=== PATIENT | male | born 1995 | race Caucasian/White ===

== ENCOUNTER 2019-05-15 14:08 | Emergency (ER) | payer OTHER ==
[2019-05-15 14:12] VITALS: BP 138/69
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
== END 2019-05-15 15:29 | disposition home or self-care (01) ==
LOC: ER 14:08
DX: S62.304A Unspecified fracture of fourth metacarpal bone, right hand, initial encounter for closed fracture (principal); S62.306A Unspecified fracture of fifth metacarpal bone, right hand, initial encounter for closed fracture; M79.641 Pain in right hand; M25.572 Pain in left ankle and joints of left foot; W22.8XXA Striking against or struck by other objects, initial encounter; Z87.891 Personal history of nicotine dependence
CPT/HCPCS: 99283

== ENCOUNTER 2019-05-29 13:08 | Emergency (ER) | payer SELFPAY ==
[2019-05-29 13:25] VITALS: BP 144/85
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
== END 2019-05-29 13:40 | disposition home or self-care (01) ==
LOC: ER 13:08
DX: S86.00 Unspecified injury of Achilles tendon (principal); X58.XXXS Exposure to other specified factors, sequela
CPT/HCPCS: 99283

== ENCOUNTER 2019-05-29 20:32 | Emergency (ER) | payer OTHER ==
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
[2019-05-29] MEDS ORDERED: ZIPRASIDONE MESYLATE INJ/PF 20 MG SDV IM ONE (21:33)
[2019-05-29] MEDS ORDERED: KETOROLAC TROMETHAMINE 60 MG/2 ML SDV IM ONE (22:20)
[2019-05-29] MEDS ORDERED: HALOPERIDOL LACTATE INJ 5 MG/1 ML VIAL IM ONE (22:28)
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
[2019-05-30 00:11] LABS: APPEARANCE,URINE CLEAR; BILIRUBIN,URINE NEGATIVE (NEGATIVE); COLOR,URINE YELLOW; GLUCOSE, URINE NEGATIVE (NEGATIVE); KETONES,URINE NEGATIVE (NEGATIVE); LEUKOCYTE ESTERASE,URINE NEGATIVE (NEGATIVE); NITRITE,URINE NEGATIVE (NEGATIVE); PROTEIN,URINE 100 mg/dL (NEGATIVE); URINE SPECIFIC GRAVITY 1.017; UROBILINOGEN,URINE NEGATIVE mg/dL (<2.0)
[2019-05-30 00:13] LABS: ABSOLUTE LYMPHOCYTES (AUTO) 1.3 10^3/uL (0.5-4.7); ABSOLUTE MONOCYTES (AUTO) 0.8 10^3/uL (0.1-1.4); BASOPHILS % (AUTO) 0.2 % (0-2); HEMATOCRIT 40.4 % (37.9-51.0); HEMOGLOBIN 14.1 g/dL (13.5-17.0); LYMPHOCYTES % (AUTO) 14.1 % (13-45); MEAN CORPUSCULAR HEMOGLOBIN 29.9 pg (27.0-33.4); MEAN CORPUSCULAR HGB CONC 34.9 g/dL (32.0-36.0); MEAN CORPUSCULAR VOLUME 86 fl (80-97); MONOCYTES % (AUTO) 9.1 % (3-13); PLATELET COUNT 231 10^3/uL (150-450); RED BLOOD COUNT 4.71 10^6/uL (4.35-5.55); RED CELL DISTRIBUTION WIDTH 12.3 % (11.5-14.0); SEGMENTED NEUTROPHILS % (AUTO) 76.6 % (42-78); TOTAL CELLS COUNTED % (AUTO) 100 %; WHITE BLOOD COUNT 9.2 10^3/uL (4.0-10.5)
[2019-05-30 00:28] LABS: URINE AMPHETAMINES SCREEN NEGATIVE; URINE BARBITURATES SCREEN NEGATIVE; URINE BENZODIAZEPINES SCREEN NEGATIVE; URINE COCAINE SCREEN NEGATIVE; URINE MARIJUANA (THC) SCREEN UNCONFIRMED POSITIVE; URINE METHADONE SCREEN NEGATIVE; URINE PHENCYCLIDINE SCREEN NEGATIVE
[2019-05-30 00:33] LABS: ALBUMIN 5.3 g/dL (3.5-5.0); ALKALINE PHOSPHATASE 72 U/L (38-126); ANION GAP 10 (5-19); ASPARTATE AMINO TRANSFERASE 112 U/L (17-59); BILIRUBIN,DIRECT 0.1 mg/dL (0.0-0.4); BILIRUBIN,TOTAL 1.6 mg/dL (0.2-1.3); BLOOD UREA NITROGEN 15 mg/dL (7-20); CARBON DIOXIDE 30 mmol/L (22-30); CHLORIDE 98 mmol/L (98-107); GLUCOSE 117 mg/dL (75-110); POTASSIUM 3.9 mmol/L (3.6-5.0); TOTAL PROTEIN 8.6 g/dL (6.3-8.2)
[2019-05-30 00:34] LABS: ACETAMINOPHEN < 10 ug/mL (10-30); ALCOHOL < 10 mg/dL (NONE DETECTED); SALICYLATE < 1.0 mg/dL (2.0-20.0)
[2019-05-30] MEDS ORDERED: ZIPRASIDONE HCL 20 MG CAPSULE PO ONE (05:12)
[2019-05-30] MEDS ORDERED: HALOPERIDOL LACTATE INJ 5 MG/1 ML VIAL IM ONE ×2 (05:51→06:24)
[2019-05-30] MEDS ORDERED: LORAZEPAM INJ 2 MG/1 ML VIAL IM ONE (05:51)
[2019-05-30] MEDS ORDERED: DIPHENHYDRAMINE HCL 50 MG/ML VIAL ONE (05:51)
[2019-05-30] MEDS ORDERED: DIPHENHYDRAMINE HCL 50 MG/ML VIAL IV ONE (05:51)
[2019-05-30] MEDS ORDERED: HALOPERIDOL LACTATE INJ 5 MG/1 ML VIAL ONE (05:51)
[2019-05-30] MEDS ORDERED: LORAZEPAM INJ 2 MG/1 ML VIAL ONE (05:52)
--- NOTE | 2019-05-30 07:32 | EKG REPORT ---
SEVERITY:- ABNORMAL ECG - SINUS RHYTHM RIGHT AXIS DEVIATION = LEFT POST FASCICULAR BLOCK : Confirmed by: Trey Molina MD 30-May-2019 07:31:13
--- NOTE | 2019-05-30 16:24 | ER Document Report ---
Doctor's Note Notes: 05/30/19 16:23 Patient evaluated at bedside at 10:00 this morning, vitals were stable, nurse's notes, providers notes reviewed. Patient still to be seen by mental health. Labs were evaluated. Patient reports sore throat from his intubation while at [facility]. Clinical exam unremarkable. Patient is calm orientated and compliant. Patient had breakfast without any issues. Patient denies any medical needs otherwise having a sore throat at this time. We will continue to monitor 05/30/19 16:23
[2019-05-30] MEDS: OLANZAPINE 5 MG TABLET PO SCH (17:14)
[2019-05-30] MEDS: BENZTROPINE MESYLATE 1 MG TABLET PO SCH (17:14)
[2019-05-30] MEDS ORDERED: ZIPRASIDONE MESYLATE INJ/PF 20 MG SDV IM ONE (18:47)
[2019-05-30] MEDS ORDERED: ACETAMINOPHEN 325 MG TABLET PO ONE (21:42)
[2019-05-30] MEDS ORDERED: HYDROXYZINE PAMOATE 50 MG CAPSULE PO ONE (23:31)
[2019-05-30] MEDS ORDERED: PROMETHAZINE HCL 25 MG TABLET PO ONE (23:32)
[2019-05-31] MEDS ORDERED: LORAZEPAM INJ 2 MG/1 ML VIAL IM ONE ×2 (01:19→08:03)
[2019-05-31] MEDS ORDERED: HALOPERIDOL LACTATE INJ 5 MG/1 ML VIAL IM ONE ×2 (01:20→08:04)
[2019-05-31 07:31] VITALS: BP 117/73
[2019-05-31] MEDS ORDERED: DIPHENHYDRAMINE HCL 50 MG/ML VIAL IM ONE (08:03)
[2019-05-31] MEDS: BENZTROPINE MESYLATE 1 MG TABLET PO SCH (10:11)
[2019-05-31] MEDS: OLANZAPINE 5 MG TABLET PO SCH (10:11)
--- NOTE | 2019-05-31 20:23 | ER Document Report ---
Doctor's Note Notes: 05/31/19 09:30 PHYSICAL EXAMINATION: GENERAL: Well-appearing and in no acute distress. HEAD: Atraumatic, normocephalic. EYES: sclera anicteric, conjunctiva are normal. ENT: nares patent, Moist mucous membranes. NECK: Normal range of motion, supple without lymphadenopathy LUNGS: CTAB and equal. No wheezes rales or rhonchi. HEART: Regular rate and rhythm without murmurs ABDOMEN: Soft, no tenderness. No guarding, no rebound EXTREMITIES: Normal range of motion, no pitting edema. No cyanosis. BACK: No midline tenderness, no CVA tenderness. NEUROLOGICAL: Cranial nerves grossly intact. Normal gait. PSYCH: Patient reports he will kill himself if he has to be admitted here, patient with some psychomotor agitation SKIN: Warm, Dry, normal turgor, no rashes or lesions noted Reviewed patient's diagnostic evaluation, vital signs and nurse's note. Patient medically stable for transfer. Mental health team has gone patient placed at [facility]'s deputy is here to transfer patient.
== END 2019-05-31 10:12 | disposition other institution (70) ==
LOC: ER 20:32
DX: R45.851 Suicidal ideations (principal); R45.1 Restlessness and agitation; M79.606 Pain in leg, unspecified
CPT/HCPCS: 93005; 96376; 99291; 96374; 96375; 36415; 87070; 87880; 80307 ×4; 85025; 87077; 80053; 81001; 93010; J1200 ×2; J1630 ×2; J2060 ×2; J3486 ×2

== ENCOUNTER 2019-06-17 22:09 | Emergency (ER) | payer OTHER ==
[2019-06-17] MEDS ORDERED: ONDANSETRON HCL INJ/PF 4 MG/2 ML SDV IV ONE (22:46)
[2019-06-17 23:46] LABS: ABSOLUTE LYMPHOCYTES (AUTO) 0.7 10^3/uL (0.5-4.7); ABSOLUTE MONOCYTES (AUTO) 0.3 10^3/uL (0.1-1.4); ABSOLUTE NEUT (AUTO) 6.2 10^3/uL (1.7-8.2); BASOPHILS % (AUTO) 0.3 % (0-2); EOSINOPHILS % (AUTO) 0.2 % (0-6); HEMATOCRIT 40.5 % (37.9-51.0); LYMPHOCYTES % (AUTO) 9.7 % (13-45); MEAN CORPUSCULAR HEMOGLOBIN 29.7 pg (27.0-33.4); MEAN CORPUSCULAR HGB CONC 34.6 g/dL (32.0-36.0); MEAN CORPUSCULAR VOLUME 86 fl (80-97); MONOCYTES % (AUTO) 4.6 % (3-13); PLATELET COUNT 206 10^3/uL (150-450); RED BLOOD COUNT 4.73 10^6/uL (4.35-5.55); RED CELL DISTRIBUTION WIDTH 12.5 % (11.5-14.0); SEGMENTED NEUTROPHILS % (AUTO) 85.2 % (42-78); TOTAL CELLS COUNTED % (AUTO) 100 %; WHITE BLOOD COUNT 7.3 10^3/uL (4.0-10.5)
[2019-06-18 00:06] LABS: ALKALINE PHOSPHATASE 50 U/L (38-126); ANION GAP 13 (5-19); ASPARTATE AMINO TRANSFERASE 22 U/L (17-59); BILIRUBIN,DIRECT 0.2 mg/dL (0.0-0.4); BILIRUBIN,TOTAL 0.4 mg/dL (0.2-1.3); BLOOD UREA NITROGEN 11 mg/dL (7-20); CALCIUM 9.9 mg/dL (8.4-10.2); CARBON DIOXIDE 25 mmol/L (22-30); CHLORIDE 104 mmol/L (98-107); GLUCOSE 105 mg/dL (75-110); POTASSIUM 4.5 mmol/L (3.6-5.0); TOTAL PROTEIN 8.2 g/dL (6.3-8.2)
[2019-06-18] MEDS ORDERED: RINGERS SOLUTION,LACTATED 1,000 ML IV ONE (00:23)
[2019-06-18 00:35] LABS: APPEARANCE,URINE CLEAR; BILIRUBIN,URINE NEGATIVE (NEGATIVE); COLOR,URINE AMBER; GLUCOSE, URINE NEGATIVE (NEGATIVE); KETONES,URINE 25 mg/dL (NEGATIVE); LEUKOCYTE ESTERASE,URINE NEGATIVE (NEGATIVE); NITRITE,URINE NEGATIVE (NEGATIVE); PROTEIN,URINE 100 mg/dL (NEGATIVE); URINE SPECIFIC GRAVITY 1.023; UROBILINOGEN,URINE NEGATIVE mg/dL (<2.0)
--- NOTE | 2019-06-18 01:12 | ER Document Report ---
ED GI/ - General Chief Complaint: Nausea/Vomiting Stated Complaint: REAL SICK/VOMITING Time Seen by Provider: 06/18/19 00:19 Primary Care Provider: TRISTON ISABEL MD [Primary Care Provider] - Follow up as needed Notes: Patient is a 23-year-old male presents to the emergency department for nausea and vomiting since this evening. Voices he has vomited over 7 times is denying any blood in his emesis. Patient voices he did take her Risperdal to help him sleep. States he woke up with continued vomiting which is why presents to the emergency room. Patient states he does take Depakote Risperdal and Prozac on a daily basis. Patient voices an allergy to Haldol. Patient's denying any abdominal pain, dysuria, back pain. He is denying any diarrhea. TRAVEL OUTSIDE OF THE [place] IN LAST 30 DAYS: No - Related Data Allergies/Adverse Reactions: haloperidol [From Haldol] Allergy (Verified 06/17/19 22:33) Home Medications: Risperodol, Depakote, Prozac Past Medical History - General Information source: Patient - Social History Smoking Status: Never Smoker Chew tobacco use (# tins/day): Yes Frequency of alcohol use: None Drug Abuse: Marijuana Family History: Reviewed & Not Pertinent Patient has suicidal ideation: No Patient has homicidal ideation: No Renal/ Medical History: Denies: Hx Peritoneal Dialysis Musculoskeletal Medical History: Reports Hx Musculoskeletal Trauma - Achilles tendon injury and fractured fourth and fifth metacarpal on the rig Psychiatric Medical History: Reports: Hx Depression Traumatic Medical History: Reports: Hx Fractures - Fourth and fifth metacarpal fracture Past Surgical History: Reports: Hx Oral Surgery - wisdom teeth - Immunizations Immunizations up to date: Yes Hx Diphtheria, Pertussis, Tetanus Vaccination: Yes Review of Systems - Review of Systems Constitutional: denies: Fever EENT: No symptoms reported Cardiovascular: No symptoms reported Respiratory: No symptoms reported Gastrointestinal: See HPI Genitourinary: See HPI Male Genitourinary: No symptoms reported Musculoskeletal: No symptoms reported Skin: No symptoms reported Hematologic/Lymphatic: No symptoms reported Neurological/Psychological: No symptoms reported Physical Exam - Vital signs Vitals: Temp Pulse Resp BP Pulse Ox 97.5 F 89 18 125/70 96 06/17/19 22:13 06/17/19 22:13 06/17/19 22:13 06/17/19 22:13 06/17/19 22:13 - Notes Notes: GENERAL: Alert, interacts well. No acute distress. HEAD: Normocephalic, atraumatic. EYES: Pupils equal, round, and reactive to light. Extraocular movements intact. ENT: Oral mucosa moist, tongue midline. NECK: Full range of motion. Supple. Trachea midline. LUNGS: Clear to auscultation bilaterally, no wheezes, rales, or rhonchi. No respiratory distress. HEART: Regular rate and rhythm. No murmur ABDOMEN: Soft, non-tender. Non-distended. Bowel sounds present in all 4 quadra nts. EXTREMITIES: Moves all 4 extremities spontaneously. No edema, normal radial and dorsalis pedis pulses bilaterally. No cyanosis. BACK: no cervical, thoracic, lumbar midline tenderness. No saddle anesthesia, normal distal neurovascular exam. No CVA tenderness noted bilaterally. NEUROLOGICAL: Alert and oriented x3. Normal speech. cranial nerves II through XII grossly intact PSYCH: Normal affect, normal mood. SKIN: Warm, dry, normal turgor. No rashes or lesions noted. Course - Re-evaluation Re-evalutation: 06/18/19 01:08 Laboratory 06/17/19 06/17/19 06/17/19 23:25 23:25 23:25 WBC 7.3 RBC 4.73 Hgb 14.0 Hct 40.5 MCV 86 MCH 29.7 MCHC 34.6 RDW 12.5 Plt Count 206 Lymph % (Auto) 9.7 L Gilliam % (Auto) 4.6 Eos % (Auto) 0.2 Baso % (Auto) 0.3 Absolute Neuts (auto) 6.2 Absolute Lymphs (auto) 0.7 Absolute Monos (auto) 0.3 Absolute Eos (auto) 0.0 Absolute Basos (auto) 0.0 Seg Neutrophils % 85.2 H Sodium 142.1 Potassium 4.5 Chloride 104 Carbon Dioxide 25 Anion Gap 13 BUN 11 Creatinine 0.92 Est GFR ( Amer) > 60 Est GFR (MDRD) Non-Af > 60 Glucose 105 Calcium 9.9 Total Bilirubin 0.4 Direct Bilirubin 0.2 Neonat Total Bilirubin Not Reportable Neonat Direct Bilirubin Not Reportable Neonat Indirect Bili Not Reportable AST 22 ALT 21 Alkaline Phosphatase 50 Total Protein 8.2 Albumin 5.0 Lipase 67.6 Urine Color Urine Appearance Urine pH Ur Specific [place] Urine Protein Urine Glucose (UA) Urine Ketones Urine Blood Urine Nitrite Urine Bilirubin Urine Urobilinogen Ur Leukocyte Esterase Urine WBC (Auto) Urine RBC (Auto) Urine Mucus (Auto) Urine Ascorbic Acid 06/18/19 00:05 WBC RBC Hgb Hct MCV MCH MCHC RDW Plt Count Lymph % (Auto) Gilliam % (Auto) Eos % (Auto) Baso % (Auto) Absolute Neuts (auto) Absolute Lymphs (auto) Absolute Monos (auto) Absolute Eos (auto) Absolute Basos (auto) Seg Neutrophils % Sodium Potassium Chloride Carbon Dioxide Anion Gap BUN Creatinine Est GFR ( Amer) Est GFR (MDRD) Non-Af Glucose Calcium Total Bilirubin Direct Bilirubin Neonat Total Bilirubin Neonat Direct Bilirubin Neonat Indirect Bili AST ALT Alkaline Phosphatase Total Protein Albumin Lipase Urine Color [place]ON Urine Appearance CLEAR Urine pH 9.0 Ur Specific [place] 1.023 Urine Protein 100 H Urine Glucose (UA) NEGATIVE Urine Ketones 25 H Urine Blood NEGATIVE Urine Nitrite NEGATIVE Urine Bilirubin NEGATIVE Urine Urobilinogen NEGATIVE Ur Leukocyte Esterase NEGATIVE Urine WBC (Auto) 1 Urine RBC (Auto) 4 Urine Mucus (Auto) OCC Urine Ascorbic Acid NEGATIVE Patient's labs revealed no signs of abnormalities. Patient's urine is slightly dehydrated, treated with normal saline in the emergency department. Patient was also given Zofran for nausea vomiting. Patient has had no further episodes of vomiting and has been able to p.o. fluids. Discussed with patient continued use of Zofran at home as needed. Discussed close follow-up with primary care provider, patient stable for discharge. - Vital Signs Vital signs: Temp Pulse Resp BP Pulse Ox 97.8 F 88 17 104/71 100 06/18/19 00:21 06/18/19 00:21 06/18/19 00:21 06/18/19 00:21 06/18/19 00:21 - Laboratory Result Diagrams: 06/17/19 23:25 06/17/19 23:25 Laboratory results interpreted by me: 06/17/19 06/18/19 23:25 00:05 Lymph % (Auto) 9.7 L Seg Neutrophils % 85.2 H Urine Protein 100 H Urine Ketones 25 H Discharge - Discharge Clinical Impression: Nausea & vomiting Qualifiers: Vomiting type: unspecified Vomiting Intractability: non-intractable Qualified Code(s): R11.2 - Nausea with vomiting, unspecified Condition: Stable Disposition: HOME, SELF-CARE Instructions: Vomiting ([facility]), Intravenous (IV) Fluids ([facility]), Antinausea Medication ([facility]) Additional Instructions: As we discussed you have been seen and treated in the emergency department for your nausea and vomiting. Your labs revealed no signs of abnormalities. Please use nausea medication only as needed. Please also make sure he stay well- hydrated with Pedialyte, Gatorade, water. Please follow-up with your primary care provider in the next 12 to 24 hours. Return to the emergency room for any concerns. Prescriptions: Ondansetron [Zofran Odt 4 mg Tablet] 2 tab PO Q6 PRN #10 tab.rapdis PRN Reason: For Nausea/Vomiting Forms: Return to Work Referrals: TRISTON ISABEL MD [Primary Care Provider] - Follow up as needed
[2019-06-18 01:35] VITALS: BP 129/78
== END 2019-06-18 01:35 | disposition home or self-care (01) ==
LOC: ER 22:09
DX: R11.2 Nausea with vomiting, unspecified (principal); E86.0 Dehydration; F12.10 Cannabis abuse, uncomplicated; F32.9 Major depressive disorder, single episode, unspecified; Z79.899 Other long term (current) drug therapy; Z72.0 Tobacco use; Z88.8 Allergy status to other drugs, medicaments and biological substances
CPT/HCPCS: 99284; 96374; 36415; 83690; 85025; 80053; 81001; J2405; J7120

== ENCOUNTER 2019-07-22 06:08 | Emergency (ER) | payer OTHER ==
[2019-07-22] MEDS ORDERED: LORAZEPAM INJ 2 MG/1 ML VIAL IV ONE (07:37)
[2019-07-22] MEDS ORDERED: NORMAL SALINE 1000 ML 1,000 ML with POTASSIUM CHLORIDE 20 MEQ, MAGNESIUM SULFATE 8 MEQ,... IV ONE ×5 (07:40)
--- NOTE | 2019-07-22 07:46 | ER Document Report ---
ED General <MAINE HILL - Last Filed: 07/22/19 10:39> - General TRAVEL OUTSIDE OF THE [place] IN LAST 30 DAYS: No - Related Data Home Medications: Prosac. Depokote <SKYLER ZAIDI - Last Filed: 07/22/19 11:17> - General Chief Complaint: Alcohol Withdrawl Stated Complaint: ETOH Time Seen by Provider: 07/22/19 07:00 Primary Care Provider: [facility] [Outside] - Follow up as needed [facility] [Outside] - Follow up as needed TRISTON ISABEL MD [Primary Care Provider] - Follow up as needed - [facility] Notes: Mr. Oneal is a 24-year-old male presenting with a chief complaint of alcoholism and early alcohol withdrawal syndrome. This man was hospitalized approximately 6 months ago in [facility] for delirium tremens. He was admitted to an ICU at that time. Within the last several months he has started drinking again. He says he has been "trying to we an it off" but is presently consuming about 750 cc of wine per day. He consumed alcohol last night. He is decided he does not wish to drink anymore and is come in requesting detox. He feels slightly shaky. He denies any auditory or visual hallucinations. He denies any suicidal or homicidal ideation. Patient denies any drug use. He chews tobacco. Patient has a history of PTSD. History of alcoholism. Previously served in [employer]. lives with his and [id number]. Working as a cell phone salesman. Pertinent prior history: Prior hospitalization for alcoholism as noted. Previous surgical repair of Achilles tendon rupture left lower extremity. No other surgery. Current medications: Prozac 60 mg daily Depakote 500 mg twice daily Risperdal 100 mg at bedtime Allergies: Haldol (SKYLER ZAIDI) - Related Data Allergies/Adverse Reactions: haloperidol [From Haldol] Allergy (Verified 06/17/19 22:33) Past Medical History - General Information source: Patient - Social History Smoking Status: Never Smoker Chew tobacco use (# tins/day): Yes Drug Abuse: Marijuana Family History: Reviewed & Not Pertinent Patient has suicidal ideation: No Patient has homicidal ideation: No Renal/ Medical History: Denies: Hx Peritoneal Dialysis Musculoskeletal Medical History: Reports Hx Musculoskeletal Trauma - Achilles tendon injury and fractured fourth and fifth metacarpal on the rig Psychiatric Medical History: Reports: Hx Depression Traumatic Medical History: Reports: Hx Fractures - Fourth and fifth metacarpal fracture Past Surgical History: Reports: Hx Oral Surgery - wisdom teeth - Immunizations Immunizations up to date: Yes Hx Diphtheria, Pertussis, Tetanus Vaccination: Yes <SKYLER ZAIDI - Last Filed: 07/22/19 11:17> Review of Systems <SKYLER ZAIDI - Last Filed: 07/22/19 11:17> - Review of Systems Notes: Constitutional: Negative for fever. HENT: Negative for sore throat. Eyes: Negative for visual changes. Cardiovascular: Negative for chest pain. Respiratory: Negative for shortness of breath. Gastrointestinal: Negative for abdominal pain, vomiting or diarrhea. Genitourinary: Negative for dysuria. Musculoskeletal: Negative for back pain. Skin: Negative for rash. Neurological: Mild tremor. Negative for headaches, weakness or numbness. 10 point ROS negative except as marked above and in HPI. (SKYLER ZAIDI) Physical Exam <SKYLER ZAIDI - Last Filed: 07/22/19 11:17> - Vital signs Vitals: Temp Pulse Resp BP Pulse Ox 97.9 F 81 16 145/87 H 98 07/22/19 06:12 07/22/19 06:12 07/22/19 06:12 07/22/19 06:12 07/22/19 06:12 - Notes Notes: GENERAL: Well-developed well-nourished appearing in no acute distress. SKIN: Good turgor no rashes. HEAD: Normocephalic atraumatic. EYES: PERRLA. Conjunctivae and sclerae clear. EARS: CANALS AND TMS CLEAR. NOSE: CLEAR. MOUTH: Moist mucosa. Good dentition. No stridor or edema. No drooling. NECK: Supple. No masses or thyromegaly. No adenopathy. Carotids 2+ without bruits. No JVD. BACK: Symmetrical without tenderness. CHEST: Respirations unlabored. Breath sounds clear and symmetrical. HEART: Tachycardic. Regular rhythm. No murmur gallop or rub. ABDOMEN: Soft nontender without masses, organomegaly or rebound. Bowel sounds normally active. No bruits. GENITALIA: Deferred. EXTREMITIES: No edema. No calf tenderness. Cap refill less than 1.5 seconds. Dorsalis pedis and posterior tibial pulses 3+ and symmetrical. NEUROLOGICAL: Mild generalized tremor. GCS 15. Alert and oriented x3. Normal gait. Fluent speech. Cranial nerves II through XII intact. Sensorimotor and cerebellar normal. Normal tone. (SKYLER ZAIDI) Course - Laboratory Result Diagrams: 07/22/19 07:07 07/22/19 07:07 <MAINE HILL - Last Filed: 07/22/19 10:39> - Laboratory Result Diagrams: 07/22/19 07:07 07/22/19 07:07 <SKYLER ZAIDI - Last Filed: 07/22/19 11:17> - Re-evaluation Re-evalutation: 07/22/19 07:46 Patient is to receive IV banana bag and IV Ativan. Mental health consult r equested. 07/22/19 11:12 Patient remains clinically stable. Seen by mental health and they tried to refer him to an inpatient detox but he declined this. Mental health counselor says the records indicate this man spent in a number of times and usually comes in seeking a prescription for benzodiazepine. I explained to him that I would not be prescribing long-term benzodiazepine but would strongly encourage him to seek either inpatient or outpatient detox for follow-up and we gave him appropriate resources. He appears stable for discharge at this time. (SKYLER ZAIDI) - Vital Signs Vital signs: Temp Pulse Resp BP Pulse Ox 97.9 F 81 17 125/83 96 07/22/19 06:12 07/22/19 06:12 07/22/19 11:01 07/22/19 11:01 07/22/19 11:01 - Laboratory Laboratory results interpreted by me: 07/22/19 08:45 Urine Urobilinogen 2.0 H Discharge <MAINE HILL - Last Filed: 07/22/19 10:39> <SKYLER ZAIDI - Last Filed: 07/22/19 11:17> - Discharge Clinical Impression: Chronic alcoholism, PTSD (post-traumatic stress disorder) Alcohol withdrawal syndrome Qualifiers: Complication of substance-induced condition: uncomplicated Qualified Code(s): F10.230 - Alcohol dependence with withdrawal, uncomplicated Condition: Stable Disposition: HOME, SELF-CARE Additional Instructions: You have been evaluated by both medical and behavioral health teams and have been deemed appropriate for discharge. You have been provided with community mental health and substance abuse treatment resources. You are highly encouraged to select a provider of your choosing for follow up. You have been provided with the contact information for mobile crisis, as needed. ACUTE ALCOHOL INTOXICATION and ALCOHOL ABUSE: Your evaluation revealed very high levels of alcohol. You can from drinking a large amount of alcohol rapidly! Further, there's the risk of falls, traffic accidents, and fights. A high portion (about 50 percent) of the serious injuries seen in hospital emergency rooms are caused by alcohol. Alcohol overdosage is usually due to an underlying emotional or psychiatric problem. You may benefit from counselling. If "binge" drinking is an ongoing problem for you, or if you drink ANY AM OUNT of alcohol EVERY day, you most likely have a tendency to alcoholism. You should avoid alcohol totally. We can refer you for treatment. Persons with alcohol problems are often also prone to other addictions -- you should discuss any use of medications or drugs with the doctor. You should be watched at home for the next several hours by someone who has not been drinking. Get extra fluids for the next 24 hours. Call the doctor if there is repeated vomiting, increasing headache, decreasing level of alertness, or any other worsening. CHRONIC ALCOHOLISM and ALCOHOL ABUSE: Your evaluation reveals evidence of chronic alcoholism, an addiction to alcohol. The tendency to alcoholism may be inherited. Chronic use of alcohol weakens muscles, causes fatty deposits in the liver, damages the stomach, makes you more prone to infections, and can cause defects in unborn children. In the long run, brain atrophy and cirrhosis of the liver result. You are also at greater risk for certain types of cancer, such as cancer of the mouth, throat, stomach, and liver. Counselling services are available to help you. In-hospital treatment programs often help. Support groups such as Alcoholics Anonymous can be very useful in beating this addiction. Your physician can make a referral for you. As alcoholics often are prone to other addictions, you should discuss your use of any other medications with the doctor. ALCOHOL WITHDRAWAL: Your symptoms are caused by alcohol withdrawal. After a period of frequent drinking, the brain and body are changed by the alcohol. When you quit or reduce your drinking, the nervous system becomes unstable. Withdrawal symptoms can start a few hours after your last drink, but sometimes don't begin until a couple of days later. Symptoms can include shakiness, sweating, insomnia, nausea, vomiting, fearfulness, hallucinations, and seizures. In addition to the acute effects of alcohol withdrawal, we often have to deal with the medical effects of alcoholism. These problems often include dehydration, stomach irritation, intestinal bleeding, low blood sugar, liver disease, and pancreas inflammation. Treatment for alcohol withdrawal includes mild sedatives, vitamins, and fluids. You need to be with someone who can help if symptoms become severe. Many patients can withdraw at home. Admission to the hospital or a detox facility may be necessary if withdrawal symptoms are severe and uncontrollable. Abstaining from alcohol is the only effective long-term treatment. If you start drinking again, you will not be able to control yourself after the first drink. Treatment programs are available. In addition, many alcoholics benefit from Alcoholics Anonymous or other support groups available through your counselor or buddhism rn intake. AL-ANON and ALA-TEEN are support groups for friends and family members of an alcoholic. Go to the emergency room if you develop persistent vomiting, severe abdominal pain, fever, shortness of breath, hallucinations, uncontrollable tremors, or seizures. AT ANY TIME, IF YOUR SYMPTOMS CHANGE SIGNIFICANTLY OR WORSEN OR YOU DEVELOP NEW SYMPTOMS, RETURN TO THE EMERGENCY DEPARTMENT IMMEDIATELY FOR RE-EVALUATION. Prescriptions: Lorazepam [Ativan 1 mg Tablet] 1 mg PO Q4 PRN #12 tab PRN Reason: Referrals: TRISTON ISABEL MD [Primary Care Provider] - Follow up as needed [facility] [Outside] - Follow up as needed [facility] [Outside] - Follow up as needed
[2019-07-22 07:58] LABS: ALBUMIN 4.8 g/dL (3.5-5.0); ALCOHOL < 10 mg/dL (NONE DETECTED); ALKALINE PHOSPHATASE 55 U/L (38-126); ANION GAP 11 (5-19); ASPARTATE AMINO TRANSFERASE 29 U/L (17-59); BILIRUBIN,DIRECT 0.1 mg/dL (0.0-0.4); BILIRUBIN,TOTAL 1.1 mg/dL (0.2-1.3); BLOOD UREA NITROGEN 14 mg/dL (7-20); CALCIUM 9.5 mg/dL (8.4-10.2); CARBON DIOXIDE 26 mmol/L (22-30); CHLORIDE 101 mmol/L (98-107); GLUCOSE 97 mg/dL (75-110)
[2019-07-22 08:02] LABS: ABSOLUTE LYMPHOCYTES (AUTO) 1.4 10^3/uL (0.5-4.7); ABSOLUTE MONOCYTES (AUTO) 0.7 10^3/uL (0.1-1.4); ABSOLUTE NEUT (AUTO) 4.3 10^3/uL (1.7-8.2); BASOPHILS % (AUTO) 0.4 % (0-2); EOSINOPHILS % (AUTO) 0.6 % (0-6); HEMATOCRIT 42.5 % (37.9-51.0); HEMOGLOBIN 14.7 g/dL (13.5-17.0); LYMPHOCYTES % (AUTO) 21.3 % (13-45); MEAN CORPUSCULAR HEMOGLOBIN 29.8 pg (27.0-33.4); MEAN CORPUSCULAR HGB CONC 34.5 g/dL (32.0-36.0); MEAN CORPUSCULAR VOLUME 86 fl (80-97); MONOCYTES % (AUTO) 10.9 % (3-13); PLATELET COUNT 188 10^3/uL (150-450); RED BLOOD COUNT 4.92 10^6/uL (4.35-5.55); RED CELL DISTRIBUTION WIDTH 13.3 % (11.5-14.0); SEGMENTED NEUTROPHILS % (AUTO) 66.8 % (42-78); TOTAL CELLS COUNTED % (AUTO) 100 %; WHITE BLOOD COUNT 6.4 10^3/uL (4.0-10.5)
[2019-07-22 09:00] LABS: APPEARANCE,URINE CLEAR; BILIRUBIN,URINE NEGATIVE (NEGATIVE); COLOR,URINE YELLOW; GLUCOSE, URINE NEGATIVE (NEGATIVE); KETONES,URINE NEGATIVE (NEGATIVE); PROTEIN,URINE NEGATIVE (NEGATIVE); URINE SPECIFIC GRAVITY 1.011
[2019-07-22 09:11] LABS: URINE AMPHETAMINES SCREEN NEGATIVE; URINE BARBITURATES SCREEN NEGATIVE; URINE BENZODIAZEPINES SCREEN NEGATIVE; URINE COCAINE SCREEN NEGATIVE; URINE MARIJUANA (THC) SCREEN NEGATIVE; URINE METHADONE SCREEN NEGATIVE; URINE PHENCYCLIDINE SCREEN NEGATIVE
--- NOTE | 2019-07-22 09:42 | EKG REPORT ---
SEVERITY:- OTHERWISE NORMAL ECG - SINUS RHYTHM BORDERLINE RIGHT AXIS DEVIATION : Confirmed by: Anais Esquivel 22-Jul-2019 09:41:26
--- NOTE | 2019-07-22 10:39 | PSYCHOLOGICAL NOTE ---
Psych Note - Psych Note Date seen by psych provider: 07/22/19 Time seen by psych provider: 08:20 Psych Note: Reason for consult: Alcohol Use Disorder Patient is a 24 year old male who presents to ED via POV for ETOH related issues. Patient has been seen at this ED for mental health related concerns prior to this admission. Patient is calm and, to the degree possible, engaged with clinician. Patient denies suicidal and homicidal ideations. Patient states he continues to struggle with alcoholism. Patient states his and mother are unaware he is here and requests that they do not know. At this time, patient declines inpatient substance abuse treatment. Patient states he has a job and needs to work. Patient reports he is looking for a place to withdraw right now. Per report, patient reports alcohol consumption last night. Patient stated he drank a "4 [place]" approximately 7:30 last night. Patient's urine screen is negative for alcohol. Patient is not linked with mental health for medication management or mental health services. Patient is currently prescribed Prozac 60MG, daily; Depakote 500MG, BID; Risperdal 100MG, at bedtime. Patient utilizes [facility] for medication management. Patient is alert and oriented to person, place, time and circumstance. Mood is within normal range with consideration to circumstance (withdrawal). Patient denies suicidal and homicidal ideations. Delusions are absent and behavior is congruent with an intact reality based presentation (i.e.: organized and linear through processes). There is no observed behavior that suggests patient is responding to internal stimuli. Patient denies current auditory and visual hallucinations. Eye contact is fair. Conversational speech is within normal limits for circumstance. Intellectual ability appears to be within average r kenan. Attention and concentration are good. Insight, judgment and impulse control are currently poor. DSM Diagnosis: Alcohol Use Disorder Per report, Depression Medication recommendations per [facility] contracted psychiatrist Dr. Estelita BARRIGA is as follows: Pending Impression/Plan: Patient is cleared from acute psychiatric services. Patient does not meet IVC criteria per [place] GS 122C. Patient denies suicidal and homicidal ideations. There is no observed behavior that suggests patient is responding to internal stimuli. Patient denies current auditory and visual hallucinations. Patient states he is requesting assistance with ETOH withdrawal. Patient is agreeable to outpatient mental health services, to include substance abuse treatment. Patient declines inpatient substance abuse treatment. Plan is to assist with linkage to appropriate mental health provider for medication management and mental health services to address mental health concerns and alcohol use/misuse. Patient was provided with community mental health resource list. Patient was provided with substance abuse treatment resourse list. Patient declined referral to [facility]. Dr. Eli was consulted on the care and management of this patient; attending physician is in agreement with recommendations and disposition.
[2019-07-22 11:04] VITALS: BP 125/83
== END 2019-07-22 11:51 | disposition home or self-care (01) ==
LOC: ER 06:08
DX: F10.230 Alcohol dependence with withdrawal, uncomplicated (principal); F43.10 Post-traumatic stress disorder, unspecified
CPT/HCPCS: 93005; 99285; 96375; 96365; 96366; 36415; 80307 ×2; 85025; 80053; 81001; 93010; J3475; J2060; J3480; J3411; J7030; J3490

== ENCOUNTER 2019-08-27 16:26 | Emergency (ER) | payer OTHER ==
[2019-08-27 16:33] VITALS: BP 154/77
--- NOTE | 2019-08-27 16:49 | ER Document Report ---
HPI - HPI Patient complains to provider of: Anxiety Time Seen by Provider: 08/27/19 16:39 Onset: This morning Onset/Duration: Gradual Quality of pain: Sharp Severity: Moderate Pain Level: Denies Context: 24-year-old male presented to ED for anxiety because he is out of his risperidone which helps him to sleep with his anxiety. He is also having some pain in his left Achilles. He states he tore that in February it is not a new pain. States he has been anxious since this morning when he got in a disagreement with his . He states he is out of his risperidone. Associated Symptoms: Other - Pain to the ankle and anxiety Exacerbated by: Walking, Other - Agreement with this morning for the anxiety walking for the ankle pain Relieved by: Denies Similar symptoms previously: Yes Recently seen / treated by doctor: No - ROS ROS below otherwise negative: Yes - CONSTITUTIONAL Constitutional: DENIES: Fever, Chills - EENT EENT: DENIES: Sore Throat, Ear Pain, Nasal Drainage-Clear, Nasal Drainage- Purulent, Congestion, Eye problems - NEURO Neurology: DENIES: Headache, Weakness, Vision blurred, Dizzinesss / Vertigo - CARDIOVASCULAR Cardiovascular: DENIES: Chest pain - GASTROINTESTINAL Gastrointestinal: DENIES: Abdominal Pain, Nausea, Patient vomiting, Diarrhea, Constipation, Black / Bloody Stools - URINARY Urinary: DENIES: Dysuria, Urgency, Frequency - REPRODUCTIVE Reproductive: DENIES: :, Postmenopausal, Abnormal bleeding / discharge - MUSCULOSKELETAL Musculoskeletal: REPORTS: Extremity pain - DERM Skin Color: Normal Skin Problems: None Past Medical History - General Information source: Patient - Social History Smoking Status: Never Smoker Cigarette use (# per day): No Chew tobacco use (# tins/day): Yes - 1 can a day Smoking Education Provided: No Frequency of alcohol use: None Drug Abuse: None Lives with: Family Family History: Reviewed & Not Pertinent - Past Medical History Cardiac Medical History: Reports: None Pulmonary Medical History: Reports: None EENT Medical History: Reports: None Neurological Medical History: Reports: None Endocrine Medical History: Reports: None Renal/ Medical History: Reports: None Malignancy Medical History: Reports None GI Medical History: Reports: None Musculoskeletal Medical History: Reports Hx Musculoskeletal Trauma - Achilles tendon injury and fractured fourth and fifth metacarpal on the rig Skin Medical History: Reports None Psychiatric Medical History: Reports: Hx Anxiety, Hx Depression, Hx Post Traumatic Stress Disorder Traumatic Medical History: Reports: Hx Fractures - Fourth and fifth metacarpal fracture Infectious Medical History: Reports: None Past Surgical History: Reports: Hx Oral Surgery - wisdom teeth - Immunizations Immunizations up to date: Yes Hx Diphtheria, Pertussis, Tetanus Vaccination: Yes Vertical Provider Document - CONSTITUTIONAL Agree With Documented VS: Yes - INFECTION CONTROL TRAVEL OUTSIDE OF THE [place] IN LAST 30 DAYS: No - HEENT HEENT: Atraumatic, Normal ENT Exam, Normocephalic, PERRLA - RESPIRATORY Respiratory: Breath Sounds Normal, No Respiratory Distress, Chest Non-Tender - CARDIOVASCULAR Cardiovascular: Regular Rate, Regular Rhythm, No Murmur - MUSCULOSKELETAL/EXTREMETIES Musculoskeletal/Extremeties: Tender - NEURO Level of Consciousness: Awake, Alert, Appropriate - DERM Integumentary: Warm, Dry, No Rash Course - Re-evaluation Re-evalutation: 08/27/19 19:38 Discussed patient's history exam and request with Darin the mental health worker. She did consult Dr. Eli who recommended changing patient to Zyprexa and Cogentin and stopping his medication he is on at this time. Patient was given a dose of 5 mg of Zyprexa in the emergency room and a prescription for the Zyprexa and Cogentin. He stated he would stop his benzos risperidone and trazodone and follow-up with his primary care doctor tomorrow. Patient was discharged home after he verbalized understanding and agreement with treatment plan. - Vital Signs Vital signs: Temp Pulse Resp BP Pulse Ox 98.3 F 102 H 16 154/77 H 97 08/27/19 16:31 08/27/19 16:31 08/27/19 16:31 08/27/19 16:31 08/27/19 16:31 Discharge - Discharge Clinical Impression: Anxiety Condition: Stable Disposition: HOME, SELF-CARE Instructions: Anxiety ([facility]) Additional Instructions: Anxiety The physician feels that some of your health problems are being caused by anxiety. Anxiety affects your health in many ways. Anxiety alone can cause palpitations, sweats, chest pains, abdominal pains, shortness of breath, and headaches. It contributes to ulcer disease, high blood pressure, irritable bowel syndrome, and has been shown to cause flare-ups of many other diseases. Anxiety is not a simple disorder to treat. If the anxiety is due to recent life stresses, you may simply need time to "work through" the changes. If the anxiety is due to an underlying unhappiness with yourself or due to psychiatric disturbance, professional help will be needed. Your physician can refer you for further help if needed. Anti-anxiety medication is occasionally given if the stress is acute or if you are having trouble sleeping. Chronic or frequent use of these medications is not a good idea because the body becomes reliant on it, preventing you from dealing with life's normal stresses. Please stop your trazodone Lorazepam and risperidone. Please follow-up with your primary doctor tomorrow or soon as possible. I will start you on Zyprexa 5 mg twice daily I have given you a dose now and Cogentin 1 mg daily. I will give you a prescription for these now please do not take your other medications and these also or he could have some bad effects. FOLLOW-UP CARE: If you have been referred to a physician for follow-up care, call the physicians office for an appointment as you were instructed or within the next two days. If you experience worsening or a significant change in your symptoms, notify the physician immediately or return to the Emergency Department at any time for re-evaluation. Prescriptions: Benztropine Mesylate [Cogentin 1 mg Tablet] 1 tab PO DAILY #30 tab Olanzapine [Zyprexa 5 mg Tablet] 5 mg PO Q12 #60 tablet Forms: Elevated Blood Pressure Referrals: TRISTON ISABEL MD [Primary Care Provider] - Follow up as needed
[2019-08-27] MEDS ORDERED: OLANZAPINE INJ/PF 10 MG SDV IM ONE (17:46)
[2019-08-27] MEDS ORDERED: OLANZAPINE 5 MG TABLET PO ONE (17:57)
== END 2019-08-27 18:05 | disposition home or self-care (01) ==
LOC: ER 16:26
DX: F41.9 Anxiety disorder, unspecified (principal); M25.572 Pain in left ankle and joints of left foot; Z72.0 Tobacco use
CPT/HCPCS: 99283

== ENCOUNTER 2019-08-28 16:24 | Emergency (ER) | payer OTHER ==
[2019-08-28 16:32] VITALS: BP 148/81
--- NOTE | 2019-08-28 17:37 | ER Document Report ---
HPI - HPI Patient complains to provider of: Anxiety Time Seen by Provider: 08/28/19 17:32 Onset: Other Pain Level: Denies Context: 24-year-old male presents emergency department with reports of anxiety. Reports he was seen yesterday and given prescriptions but they cost over $800. Patient also reports his providers in [place]. He denies suicidal or homicidal ideations. No other complaints. Patient is calm no complaints of fever vomiting diarrhea. Associated Symptoms: None Exacerbated by: Denies Relieved by: Denies Similar symptoms previously: Yes Recently seen / treated by doctor: Yes - REPRODUCTIVE Reproductive: DENIES: : Past Medical History - General Information source: Patient - Social History Smoking Status: Never Smoker Chew tobacco use (# tins/day): Yes - 1 tin/day Frequency of alcohol use: None Drug Abuse: None Family History: Reviewed & Not Pertinent Patient has suicidal ideation: No Patient has homicidal ideation: No Musculoskeletal Medical History: Reports Hx Musculoskeletal Trauma - Achilles tendon injury and fractured fourth and fifth metacarpal on the rig Psychiatric Medical History: Reports: Hx Anxiety, Hx Depression, Hx Post Traumatic Stress Disorder Traumatic Medical History: Reports: Hx Fractures - Fourth and fifth metacarpal fracture Past Surgical History: Reports: Hx Oral Surgery - wisdom teeth - Immunizations Immunizations up to date: Yes Hx Diphtheria, Pertussis, Tetanus Vaccination: Yes Vertical Provider Document - CONSTITUTIONAL Agree With Documented VS: Yes Exam Limitations: No Limitations General Appearance: No Apparent Distress - INFECTION CONTROL TRAVEL OUTSIDE OF THE [place] IN LAST 30 DAYS: No - HEENT HEENT: Atraumatic, Normocephalic - NECK Neck: Supple - RESPIRATORY Respiratory: No Respiratory Distress - CARDIOVASCULAR Cardiovascular: Regular Rate - MUSCULOSKELETAL/EXTREMETIES Musculoskeletal/Extremeties: RICARDO HANNA - NEURO Level of Consciousness: Awake, Alert, Appropriate - DERM Integumentary: Warm, Dry Course - Re-evaluation Re-evalutation: 08/28/19 17:43 I went to the behavioral health office Dr. Eli is there. She remembers the patient. She reports the medications they prescribed Cogentin and Zyprexa cost approximately $9 each at [facility]. I also obtained an outpatient referral list for the patient for behavioral health. He was instructed on the importance of follow-up with behavioral health. He was also given prescription drug savings card. He again denies suicidal homicidal ideations. Patient is calm. He seems to feel very appreciative of his care. - Vital Signs Vital signs: Temp Pulse Resp BP Pulse Ox 97.6 F 97 13 148/81 H 99 08/28/19 16:30 08/28/19 16:30 08/28/19 16:30 08/28/19 16:30 08/28/19 16:30 Discharge - Discharge Clinical Impression: Anxiety Condition: Stable Disposition: HOME, SELF-CARE Instructions: Anxiety ([facility]) Additional Instructions: *You have been evaluated for anxiety *Take medication as prescribed yesterday *Follow up with a mental health provider within the week. See community outpatient referral list given to you *Return to ED for worsening condition, changes, needs Forms: Return to Work Referrals: TRISTON ISABEL MD [Primary Care Provider] - Follow up in 1 week
== END 2019-08-28 17:44 | disposition home or self-care (01) ==
LOC: ER 16:24
DX: F41.9 Anxiety disorder, unspecified (principal); Z79.899 Other long term (current) drug therapy; F17.290 Nicotine dependence, other tobacco product, uncomplicated
CPT/HCPCS: 99283